=== PATIENT | male | born 1980 | race Caucasian/White ===

== ENCOUNTER 2016-10-09 12:51 | Emergency (ER) | payer OTHER ==
[~2016-10-09] VITALS: Ht 180.3 cm; Wt 85.0 kg
[~2016-10-09 12:51] MED LIST: CLINDAMYCIN HC300 MG PO; TYLENOL REGULA325 MG PO; TYLENOL WITH C1 EACH PO
[2016-10-09 14:33] LABS: ADD MIUA? YES; BILIRUBIN NEGATIVE; BLOOD NEGATIVE; COLOR YELLOW ((YELLOW)); GLUCOSE (STRIP) NEGATIVE; KETONES 5; LEUKOCYTES NEGATIVE; NITRITE NEGATIVE; PROTEIN (STRIP) 100; SPECIFIC GRAVITY 1.036 (1.000-1.030); UROBILINOGEN 0.2 MG/DL (0.2-1.0)
[2016-10-09 14:34] LABS: HEMATOCRIT 42.2 % (38.0-50.0); MCH 28.3 PG (29.0-34.0); MCHC 34.6 G/DL (30.0-36.0); MCV 81.9 FL (86-99); MEAN PLAT.VOLUME 9.9 uM^3 (9.0-12.4); PLATELET COUNT 205 K/uL (156-360); RBC DIS.WIDTH-CV 14.7 % (11.8-14.6); RED BLOOD COUNT 5.15 M/uL (4.00-5.50); WHITE BLOOD COUNT 8.2 K/uL (4.1-10.2)
[2016-10-09 14:44] LABS: BACTERIA RARE /HPF; EPITHELIAL CELLS NONE SEEN /HPF; MUCUS 3+ /LPF; RED BLOOD CELLS 0-5 /HPF (0-5); WHITE BLOOD CELLS 0-5 /HPF (0-5)
[2016-10-09 14:45] LABS: CHLORIDE 102 mEq/L (99-109); POTASSIUM 3.7 mEq/L (3.7-5.4); SODIUM 138 mEq/L (136-147)
[2016-10-09 14:47] LABS: GLUCOSE 103 mg/dL (70-99)
[2016-10-09 14:48] LABS: ANION GAP 13 MEQ/L (2-14)
[2016-10-09 14:51] LABS: GFR ESTIMATE (CALCULATED) > 59 mL/min/
[2016-10-09 14:52] LABS: UREA NITROGEN (BUN) 13 mg/dL (9-23)
[2016-10-09 16:23] VITALS: BP 131/84
== END 2016-10-09 16:24 | disposition home or self-care (01) ==
LOC: RME 12:51 → EME 12:51 → RME 16:24
PROVIDERS: Nurse Practitioner Family
DX: B34.9 Viral infection, unspecified (principal); R11.10 Vomiting, unspecified; R19.7 Diarrhea, unspecified; E86.0 Dehydration; F17.200 Nicotine dependence, unspecified, uncomplicated
CPT/HCPCS: 71020; 80048; 81003; 85027; 93005; 99281; 99284; J7030